=== PATIENT | female | born 1985 | race Caucasian/White ===

== ENCOUNTER 2022-06-15 13:50 | Emergency (ER) | payer OTHER ==
[2022-06-15 14:44] LABS: BASOPHIL 0.6 % (0-2); EOSINOPHIL 0.1 % (0-5); HCT 44.9 % (37.0-47.0); HGB 14.2 g/dl (12.5-16.0); LYMPHOCYTE 20.1 % (15-48); MCH 27.6 pg (25.0-31.0); MCHC 31.6 g/dL (32.0-36.0); MCV 87.4 fL (78.0-100.0); MONOCYTE 6.1 % (0-12); MPV 9.7 fL (6.0-9.5); NEUTROPHIL 72.7 % (41-80); NRBC 0; PLT 339 K/uL (150-400); RBC 5.14 M/uL (4.20-5.40); RDW 14.2 % (11.5-14.0); WBC 9.9 K/uL (4.0-10.5)
[2022-06-15 15:07] LABS: BILIRUBIN NEGATIVE (NEGATIVE); BLOOD TRACE-INTACT Ery/uL (NEGATIVE); CLARITY CLEAR (CLEAR); COLOR YELLOW (YELLOW); GLUCOSE (U) NORMAL (NORMAL); LEUKOCYTES 1+ Leu/uL (NEGATIVE); NITRITE NEGATIVE (NEGATIVE); PROTEIN NEGATIVE (NEGATIVE); SPECIFIC GRAVITY <=1.005 (1.001-1.030); UROBILINOGEN 0.2 mg/dL (0.2-1.0)
[2022-06-15 15:13] LABS: SQUAMOUS EPITHELIAL CELLS RARE; URINARY WBC RARE
[2022-06-15 15:31] LABS: ALBUMIN 4.6 g/dL (3.4-5.0); BILIRUBIN - TOTAL 0.5 mg/dL (0.2-1.0); BUN/CREAT RATIO (CALC) 5.1 RATIO; CREATININE 0.79 mg/dL (0.51-0.95); GLOBULIN (CALCULATION) 3.8 g/dL; POTASSIUM 3.9 mmol/L (3.5-5.1); TOTAL PROTEIN 8.4 g/dL (6.4-8.2)
[2022-06-15] MEDS ORDERED: ONDANSETRON ODT4 MG PO (16:11)
[2022-06-15] MEDS ORDERED: VIBRAMYCIN100 MG PO (16:11)
[2022-06-15] MEDS ORDERED: NAPROXEN500 MG PO (16:11)
== END 2022-06-15 17:00 | disposition home or self-care (01) ==
LOC: FER 13:50
PROVIDERS: Internal Medicine; Nurse Practitioner Family
DX: D25.9 Leiomyoma of uterus, unspecified (principal); Z28.310 Unvaccinated for COVID-19
CPT/HCPCS: 36415; 80053; 81001; 83605; 84145; 85025; 87088; 96372; J0696; J1885

== ENCOUNTER 2022-06-17 03:56 | Emergency (ER) | payer OTHER ==
[~2022-06-17 03:56] MED LIST: NAPROXEN500 MG PO; ONDANSETRON ODT4 MG PO; VIBRAMYCIN100 MG PO
[2022-06-17] MEDS ORDERED: METRONIDAZOLE500 MG PO ×2 (06:27→06:47)
[2022-06-18 22:06] LABS: CHLAMYDIA TRACHOMATIS, NAA Negative (Negative); NEISSERIA GONORRHOEAE, NAA Negative (Negative)
== END 2022-06-17 06:36 | disposition home or self-care (01) ==
LOC: FER 03:56
PROVIDERS: Emergency Medicine
DX: N76.0 Acute vaginitis (principal); K59.00 Constipation, unspecified; Z88.6 Allergy status to analgesic agent; Z88.8 Allergy status to other drugs, medicaments and biological substances
CPT/HCPCS: 87210; 87491; 87591; 99284

== ENCOUNTER 2022-06-19 00:15 | Emergency (ER) | payer OTHER ==
[~2022-06-19 00:15] MED LIST changes: +METRONIDAZOLE500 MG PO
[2022-06-19 00:56] LABS: BASOPHIL 0.6 % (0-2); EOSINOPHIL 0.7 % (0-5); HCT 43.1 % (37.0-47.0); HGB 14.1 g/dl (12.5-16.0); LYMPHOCYTE 24.2 % (15-48); MCH 28.3 pg (25.0-31.0); MCHC 32.7 g/dL (32.0-36.0); MCV 86.4 fL (78.0-100.0); MONOCYTE 7.2 % (0-12); MPV 9.8 fL (6.0-9.5); NEUTROPHIL 67.1 % (41-80); NRBC 0; PLT 305 K/uL (150-400); RBC 4.99 M/uL (4.20-5.40); RDW 14.2 % (11.5-14.0); WBC 8.8 K/uL (4.0-10.5)
[2022-06-19 01:16] LABS: ALBUMIN 4.2 g/dL (3.4-5.0); BILIRUBIN - TOTAL 0.4 mg/dL (0.2-1.0); CREATININE 0.75 mg/dL (0.51-0.95); POTASSIUM 3.5 mmol/L (3.5-5.1); TOTAL PROTEIN 8.2 g/dL (6.4-8.2)
== END 2022-06-19 01:57 | disposition home or self-care (01) ==
LOC: FER 00:15
PROVIDERS: Emergency Medicine
DX: R10.30 Lower abdominal pain, unspecified (principal); Z88.6 Allergy status to analgesic agent; Z88.8 Allergy status to other drugs, medicaments and biological substances; Z28.310 Unvaccinated for COVID-19
CPT/HCPCS: 36415; 80053; 83690; 85025